=== PATIENT | female | born 1990 | race Caucasian/White ===

== ENCOUNTER 2018-04-17 15:53 | Emergency (ER) | payer OTHER ==
[2018-04-17 16:25] VITALS: PULSE 78; BMI 29.1
--- NOTE | 2018-04-17 16:56 | PDOC ---
History of Present Illness - General Chief Complaint: Pain Stated Complaint: CHEST PAIN/ABD PAIN Time Seen by Provider: 04/17/18 16:56 History Source: Patient Exam Limitations: No Limitations Past History - Past Medical History Allergies/Adverse Reactions: Allergies Allergy/AdvReac Type Severity Reaction Status Date / Time No Known Allergies Allergy Verified 04/17/18 16:18 Home Medications: Ambulatory Orders NK [No Known Home Medication] 04/17/18 COPD: No - Suicide/Smoking/Psychosocial Hx Smoking History: Current every day smoker Information on smoking cessation initiated: Yes Hx Alcohol Use: No Drug/Substance Use Hx: No *Physical Exam - Vital Signs Last Vital Signs Temp Pulse Resp BP Pulse Ox 99.7 F H 78 20 133/95 98 04/17/18 16:21 04/17/18 16:21 04/17/18 16:21 04/17/18 16:21 04/17/18 16:21 Moderate Sedation - Procedure Monitoring Vital Signs: Procedure Monitoring Vital Signs Temperature 99.7 F H 04/17/18 16:21 Pulse Rate 78 04/17/18 16:21 Respiratory Rate 20 04/17/18 16:21 Blood Pressure 133/95 04/17/18 16:21 O2 Sat by Pulse Oximetry (%) 98 04/17/18 16:21
--- NOTE | 2018-04-17 17:23 | PDOC ---
History of Present Illness - General Chief Complaint: Pain Stated Complaint: CHEST PAIN/ABD PAIN Time Seen by Provider: 04/17/18 16:56 - History of Present Illness Initial Comments: 04/17/18 17:22 27 yo F with h/o anxiety who p/w RUQ abdominal pain. Patient reports 1 month of intermittent, dull, and sharp RUQ abdominal pain, with intermittent radiation to right shoulder and back. Pain worse with food triggers/PO intake. Also endorses intermittent nausea without vomiting. Painnot improved with OTC Tylenol. Nml bowel habits. Denies repetitive lifting/straining/twisting movements of torso. Patient evaluated at PMD and scheduled to get RUQ U/S. Patient denies BOLTON, vision change, palpitations, cough, wheezing, orthopena, PND , leg swelling/pain, F,C, CP, SOB, urinary complaints, hematuria, BPR, diarrhea , constipation, lightheadedness, weakness, sensory changes. PMHx: as noted above. Denies h/o abdominal surgery, endoscopy, chronic NSAID use. Does not f/w GI. ROS: as noted SHx: Denies IVDA Allergies: NKDA Past History - Past Medical History Allergies/Adverse Reactions: Allergies Allergy/AdvReac Type Severity Reaction Status Date / Time No Known Allergies Allergy Verified 04/17/18 16:18 Home Medications: Ambulatory Orders Ondansetron [Ondansetron Odt] 8 mg PO PRN PRN #14 tab.rapdis MDD 1 tab 04/17/18 Ranitidine [Zantac -] 150 mg PO PRN PRN #30 tablet MDD 2 tab 04/17/18 COPD: No - Suicide/Smoking/Psychosocial Hx Smoking History: Current every day smoker Information on smoking cessation initiated: Yes Hx Alcohol Use: No Drug/Substance Use Hx: No Review of Systems - Review of Systems Comments:: 04/17/18 17:22 GENERAL/CONSTITUTIONAL: No fever or chills. No weakness. HEAD, EYES, EARS, NOSE AND THROAT: No change in vision. No ear pain or discharge. No sore throat. CARDIOVASCULAR: No chest pain or shortness of breath RESPIRATORY: No cough, wheezing, or hemoptysis. GASTROINTESTINAL: + Abdominal pain, nausea. No vomiting, diarrhea or constipation. GENITOURINARY: No dysuria, frequency, or change in urination. MUSCULOSKELETAL: No joint or muscle swelling or pain. No neck or back pain. SKIN: No rash NEUROLOGIC: No headache, vertigo, loss of consciousness, or change in strength/ sensation. ENDOCRINE: No increased thirst. No abnormal weight change HEMATOLOGIC/LYMPHATIC: No anemia, easy bleeding, or history of blood clots. ALLERGIC/IMMUNOLOGIC: No hives or skin allergy. *Physical Exam - Vital Signs Last Vital Signs Temp Pulse Resp BP Pulse Ox 99.7 F H 78 20 133/95 98 04/17/18 16:21 04/17/18 16:21 04/17/18 16:21 04/17/18 16:21 04/17/18 16:21 - Physical Exam Comments: 04/17/18 17:22 GENERAL: Awake, alert, and fully oriented, in no acute distress HEAD: No signs of trauma, normocephalic, atraumatic EYES: PERRLA, EOMI, sclera anicteric, conjunctiva clear ENT: Hearing grossly normal, nares patent, oropharynx clear without exudates. Moist mucosa NECK: Normal ROM, supple, no lymphadenopathy, JVD, or masses LUNGS: No distress, speaks full sentences, clear to auscultation bilaterally HEART: Regular rate and rhythm, normal S1 and S2, no murmurs, rubs or gallops, peripheral pulses normal and equal bilaterally. ABDOMEN: + RUQ and epigastria ttp, NDS, normoactive bowel sounds. No guarding, no rebound. No masses. Neg CVA ttp. EXTREMITIES : Normal inspection, Normal range of motion, no edema. No clubbing or cyanosis. NEUROLOGICAL: Cranial nerves II through XII grossly intact. Normal speech, normal gait, no focal sensorimotor deficits SKIN: Warm, Dry, normal turgor, no rashes or lesions noted Moderate Sedation - Procedure Monitoring Vital Signs: Procedure Monitoring Vital Signs Temperature 99.7 F H 04/17/18 16:21 Pulse Rate 78 04/17/18 16:21 Respiratory Rate 20 04/17/18 16:21 Blood Pressure 133/95 04/17/18 16:21 O2 Sat by Pulse Oximetry (%) 98 04/17/18 16:21 ED Treatment Course - LABORATORY CBC & Chemistry Diagram: 04/17/18 17:40 04/17/18 17:40 Medical Decision Making - Medical Decision Making 04/17/18 17:48 27 yo F with h/o anxiety who p/w RUQ abdominal pain x 1 month. Vitals wnl, AF, A &OX3. Physical exam notable for RUQ, and epigastria ttp. Possible biliary colic , vs. MSK related pain. will consider biliary dz., gastirits, esophagitis, pancreatitis, PUD. nephrolithiasis. Low suspicion PNA, pericardial or pleural effusion, pyelonephritis. Absent lower abdominal involvmenet, vaginal, urinary complaints. Will provide antiemetic and analgesic control. ED Course: GB U/S, Ranitidine, Zofran, Bentyl 04/17/18 18:00 WBC: 12.7 04/17/18 18:23 AST/ALT: 38/69 04/17/18 18:24 Serum Preg: Neg 04/17/18 19:11 Pt. endorsed to night team. Pending RUQ U/S *DC/Admit/Observation/Transfer Diagnosis at time of Disposition: RUQ abdominal pain, Epigastric abdominal pain - Discharge Dispostion Condition at time of disposition: Stable Decision to Admit order: No - Prescriptions Prescriptions: Ondansetron [Ondansetron Odt] 8 mg PO PRN PRN #14 tab.rapdis MDD 1 tab PRN Reason: Nausea And/Or Vomiting Ranitidine [Zantac -] 150 mg PO PRN PRN #30 tablet MDD 2 tab PRN Reason: Pain - Referrals Referrals: Chetan Lopez MD [Staff Physician] - - Patient Instructions Printed Discharge Instructions: DI for Epigastric Pain Additional Instructions: Please return to the emergency department with any new or worsening symptoms or concerns. Please follow up with your flux mixer within 72 hours. Take Zofran, and Ranitidine as needed for pain. - Post Discharge Activity - Attestations Physician Attestion: 04/17/18 17:23 I attest to the information provided in this note.
[2018-04-17] MEDS ORDERED: RANITIDINE HCL 150 MG TABLET (FP) PO ONE (17:42)
[2018-04-17] MEDS ORDERED: MAG HYDROX/AL HYDROX/SIMETH 30 ML UNIT-DOSE CUP PO ONE (17:42)
[2018-04-17] MEDS ORDERED: ONDANSETRON 4 MG TABLET PO ONE (17:42)
[2018-04-17] MEDS ORDERED: DICYCLOMINE HCL 10 MG CAPSULE PO ONE (17:42)
[2018-04-17 17:50] LABS: BASO % 0.4 % (0-2.0); EOS % 0.2 % (0-4.5); HEMATOCRIT 43.6 % (32.4-45.2); HEMOGLOBIN 15.3 GM/dL (10.7-15.3); LYMPH % 21.4 % (8-40); MCH 31.4 pg (25.7-33.7); MEAN CELL VOLUME 89.6 fl (80-96); MEAN PLT VOLUME 7.8 fl (7.5-11.1); MONO % 6.3 % (3.8-10.2); NEUT % 71.7 % (42.8-82.8); PLATELET COUNT 273 K/MM3 (134-434); RBC 4.86 M/mm3 (3.60-5.2); RDW 12.8 % (11.6-15.6); WHITE BLOOD COUNT 12.7 K/mm3 (4.0-10.0)
[2018-04-17 18:19] LABS: ALK PHOS 71 U/L (45-117); ANION GAP 6 MMOL/L (8-16); BILIRUBIN,TOTAL 0.6 mg/dL (0.2-1); BLOOD UREA NITROGEN 24 mg/dL (7-18); CHLORIDE 106 mmol/L (98-107); CO2 25 mmol/L (21-32); CREATININE 0.7 mg/dL (0.55-1.3); GLUCOSE,RANDOM 92 mg/dL (74-106); POTASSIUM 4.2 mmol/L (3.5-5.1); SGOT/AST 38 U/L (15-37); SGPT/ALT 69 U/L (13-61); SODIUM 136 mmol/L (136-145); TOT PROT 7.8 g/dl (6.4-8.2)
[2018-04-17 18:25] LABS: LIPASE 111 U/L (73-393)
--- NOTE | 2018-04-17 18:46 | PDOC ---
Attending Attestation - Resident Resident Name: Ramiro Puga - ED Attending Attestation I have performed the following: I have examined & evaluated the patient, The case was reviewed & discussed with the resident, I agree w/resident's findings & plan, Exceptions are as noted - HPI HPI: 04/17/18 18:46 Ms Hensley is a 27 yo F presenting to the ER with a complaint of RUQ pain x 1 month Symptoms have gradually worsened No fevers or chills No vomiting Or diarrhea Pt states pain is present constantly No trauma - Physicial Exam PE: 04/17/18 18:45 Pt is awake and alert RRR CTA Abd is soft, RUQ tender to palpation, Voluntary guarding No rebound No lower abdominal tenderness No lower extremity edema - Medical Decision Making 04/17/18 18:46 27 yo F p/w RUQ abdominal pain x 1 month. Vitals wnl, AF, A&OX3. Pt is tender to palpation No lower abdominal tenderness to palpation Concerning for biliary colic, cholecystitis, less likely RLL pna/PE Laboratory Tests 04/17/18 04/17/18 04/17/18 17:40 17:40 17:40 WBC 12.7 H Hgb 15.3 Hct 43.6 Plt Count 273 BUN Creatinine AST ALT Creatine Kinase 53 Troponin I < 0.02 Serum , Qual Negative 04/17/18 17:40 WBC Hgb Hct Plt Count BUN 24 H Creatinine 0.7 AST 38 H ALT 69 H Creatine Kinase Troponin I Serum , Qual Pending US Signed out to Overnight team
[2018-04-17] MEDS ORDERED: RANITIDINE HCL 150 MG TABLET (FP) ONE (19:43)
[2018-04-17] MEDS ORDERED: ONDANSETRON *ODT* 4 MG TABLET ONE (19:44)
[2018-04-17] MEDS ORDERED: MAG HYDROX/AL HYDROX/SIMETH 30 ML UNIT-DOSE CUP ONE (19:44)
[2018-04-17] MEDS ORDERED: DICYCLOMINE HCL 10 MG CAPSULE ONE (19:44)
--- NOTE | 2018-04-17 20:37 | PDOC ---
*Physical Exam - Vital Signs Last Vital Signs Temp Pulse Resp BP Pulse Ox 99.7 F H 78 20 133/95 98 04/17/18 16:21 04/17/18 16:21 04/17/18 16:21 04/17/18 16:21 04/17/18 16:21 ED Treatment Course - LABORATORY CBC & Chemistry Diagram: 04/17/18 17:40 04/17/18 17:40 - ADDITIONAL ORDERS Additional order review: Laboratory Results 04/17/18 04/17/18 04/17/18 17:40 17:40 17:40 Sodium 136 Potassium 4.2 Chloride 106 Carbon Dioxide 25 Anion Gap 6 L BUN 24 H Creatinine 0.7 Creat Clearance w eGFR > 60 Random Glucose 92 Calcium 9.0 Total Bilirubin 0.6 AST 38 H ALT 69 H Alkaline Phosphatase 71 Creatine Kinase 53 Troponin I < 0.02 Total Protein 7.8 Albumin 4.0 Lipase 111 Serum , Qual Negative 04/17/18 17:40 RBC 4.86 MCV 89.6 MCHC 35.0 RDW 12.8 MPV 7.8 Neutrophils % 71.7 Lymphocytes % 21.4 Monocytes % 6.3 Eosinophils % 0.2 Basophils % 0.4 - Medications Given in the ED: ED Medications Discontinued Medications Generic Name Dose Route Start Last Admin Trade Name Freq PRN Reason Stop Dose Admin Al Hydroxide/Mg Hydroxide 30 ml 04/17/18 17:42 04/17/18 19:52 Mylanta Oral Suspension - PO 04/17/18 17:43 30 ml ONCE ONE Administration Dicyclomine HCl 10 mg 04/17/18 17:42 04/17/18 19:52 Bentyl - PO 04/17/18 17:43 10 mg ONCE ONE Administration Ondansetron HCl 4 mg 04/17/18 17:42 04/17/18 19:53 Zofran - PO 04/17/18 17:43 4 mg ONCE ONE Administration Ranitidine HCl 150 mg 04/17/18 17:42 04/17/18 19:52 Zantac - PO 04/17/18 17:43 150 mg ONCE ONE Administration Medical Decision Making - Medical Decision Making 04/17/18 20:[address] Puga. Patient is 27F with no significant pmh here today with RUQ/epigastric abdominal pain. CBC shows small leukocystosis, lipase negative, CMP otherwise reassuring. Pending US, likely discharge. US normal. Will reassess and d/c with return precautions. *DC/Admit/Observation/Transfer Diagnosis at time of Disposition: RUQ abdominal pain, Epigastric abdominal pain - Discharge Dispostion Condition at time of disposition: Stable - Prescriptions Prescriptions: Ondansetron [Ondansetron Odt] 8 mg PO PRN PRN #14 tab.rapdis MDD 1 tab PRN Reason: Nausea And/Or Vomiting Ranitidine [Zantac -] 150 mg PO PRN PRN #30 tablet MDD 2 tab PRN Reason: Pain - Referrals Referrals: Chetan Lopez MD [Staff Physician] - - Patient Instructions Printed Discharge Instructions: DI for Epigastric Pain Additional Instructions: Please return to the emergency department with any new or worsening symptoms or concerns. Please follow up with your curb hop within 72 hours. Take Zofran, and Ranitidine as needed for pain. - Post Discharge Activity
[2018-04-17 21:04] VITALS: BP 120/76; TEMP 98.4
== END 2018-04-17 21:07 | disposition home or self-care (01) ==
LOC: JER 15:53
DX: R10.13 Epigastric pain (principal)
CPT/HCPCS: 36415; 76705-TC; 80053; 82550; 83690; 84484; 84703; 85025; 99282-25